=== PATIENT | male | born 1965 | race Caucasian/White ===

== ENCOUNTER 2024-12-14 11:31 | Outpatient (OUT) | payer OTHER, SELFPAY ==
--- NOTE | 2024-12-14 12:16 | CT_ITS ---
The [address] [address] Patient Name: LUIS GIPSON MRN: [id number] date: 1965 Sex: M Assigned Patient Location: CARD Current Patient Location: CARD Accession/Order Number: [id number] Exam Date: 12/14/2024 13:25 Report Date: 12/14/2024 13:35 At the request of: ROBERT BORREGO MD Procedure: CT lung screening low-dose CT Chest lung screening without contrast TECHNIQUE: Axial imaging with 2-D reconstruction. The CT exam was performed using one or more the following dose reduction techniques: Automated exposure control, adjustment of the MA and/or Kv according to patient size, or use of the iterative reconstruction technique. History: Long-term smoker COMPARISON: None THYROID: Unremarkable TRACHEA AND BRONCHI: Patent ESOPHAGUS: Unremarkable. HEART: Within normal limits PERICARDIAL EFFUSION: None CORONARY ARTERY CALCIFICATION: None MEDIASTINUM: No adenopathy. No pneumoperitoneum. No mediastinal hematoma. PULMONARY REAL: No hilar mass or adenopathy is seen. THORACIC AORTA Unremarkable LUNG NODULE None LUNGS: Emphysema with apical bullous changes/scarring.Tiny calcified granuloma the right middle lobe. PLEURAL EFFUSION: None PNEUMOTHORAX: No pneumothorax seen. CHEST WALL: No abnormality AXILLA:Unremarkable BONY STRUCTURES Intact UPPER ABDOMEN: Images of the upper abdomen are noncontributory. CT/CT lung screening low-dose IMPRESSION: No visible lung nodule. FINAL ASSESSMENT: Negative. Lung-RADS Version 1.0 Assessment Category: 1 REMARKS: Continued annual screening with LDCT in 12 months is recommended. Impression dictated by: Arnulfo Newman M.D.12/14/2024 1:35 PM Dictation Location: [facility] Electronically authenticated by: [id number] Y Date: 12/14/2024 13:35
--- NOTE | 2024-12-14 16:57 | PM.STRESS ---
Stress Test Stress Test Requesting physician: TANK SEGUNDO Procedure: This was a Treadmill stress test performed at the [facility] on 12/14/2024. The patient was attached to electrocardiographic monitoring. Baseline vital signs and ECG were obtained. The patient exercised on the treadmill according to the Jasper protocol. Exercise time was 4 minutes and 14 seconds and the patient reached stage II of the Jasper protocol and achieved 6.9 METS. The test was terminated due to shortness of breath and fatigue. Target heart rate was not achieved. Resting heart rate was 75 bpm and peak heart rate was 109 bpm representing 67% of maximum predicted heart rate. Resting blood pressure was 128/70 and peak blood pressure was 164/90. General Information: Reason for Stress Test: Chest pain, shortness of breath. Cardiac History and Risk Factors: Hypertension. Resting 12 - Lead Electrocardiogram: Normal sinus rhythm, no ischemic ST changes. Possible septal infarct, age undetermined. Stress Test: Protocol: Jasper protocol. Exercise Capacity: Poor. Blood Pressure Response: Elevated resting blood pressure with hypertensive response to exercise. Rhythm: Sinus rhythm throughout the test. ST - Response: No ischemic ST changes seen. Patient Response: Shortness of breath and fatigue. Interpretation: 1. Inconclusive stress test due to failure to achieve target heart rate with treadmill exercise. 2. Depending on the clinical picture, pharmacologic stress testing is recommended.
== END 2024-12-14 11:32 | disposition home or self-care (01) ==
LOC: CARD 11:34
PROVIDERS: PCP Family Medicine; Visit Provider Family Medicine
DX: R07.9 Chest pain, unspecified (principal); F17.200 Nicotine dependence, unspecified, uncomplicated
CPT/HCPCS: 71271; 93017

== ENCOUNTER 2025-08-02 10:51 | Outpatient (OUT) | payer OTHER, SELFPAY ==
--- NOTE | 2025-08-02 | XR_ITS ---
The [address] [address] Patient Name: LUIS GIPSON MRN: [id number] date: 1965 Sex: M Assigned Patient Location: [facility] Current Patient Location: [facility] Accession/Order Number: [id number] Exam Date: 08/02/2025 11:10 Report Date: 08/02/2025 11:50 At the request of: TANK SEGUNDO Procedure: XR lumbar spine 2-3V CLINICAL HISTORY: Neck pain and stiffness for the past 6 days. Low back pain with numbness and tingling down the left leg for the past 2 months. No specific injury however neck pain started after visiting a chiropractor. CERVICAL SPINE - 3 views: COMPARISON: None AP, lateral and odontoid views were obtained. There is osteopenia. There is no acute compression fracture. There is minimal retrolisthesis of C3 on C4, C4 on C5 and C5 on C6. Slight disc space narrowing is present at C4-5 and mild at C5-6 and C6-7. There are tiny endplate spurs. Mild facet hypertrophy is seen. The atlantoaxial relationship is maintained. There is no prevertebral soft tissue swelling. XR/XR cervical spine 2-3V IMPRESSION: OSTEOPENIA AND MILD DEGENERATIVE CHANGES LUMBAR SPINE - 2 views COMPARISON: None AP and lateral views were obtained. Evaluation is slightly limited by osteopenia as well as overlying bowel gas and stool.. There is subtle rotatory dextroscoliotic curvature. Alignment is maintained on the lateral view. No acute compression fractures are seen. There is disc space narrowing at the lumbosacral junction with vacuum phenomenon. There are tiny endplate spurs. There is lower lumbar facet hypertrophy. The SI joints are intact. No paraspinal soft tissue abnormalities are noted. IMPRESSION: OSTEOPENIA AND DEGENERATIVE CHANGES, GREATER DISTALLY. Impression dictated by: Indu Sanchez M.D. 08/02/2025 11:50 AM Dictation Location: [place] [address] Electronically authenticated by: [id number] Y Date: 08/02/2025 11:50
--- NOTE | 2025-08-02 | XR_ITS ---
The [address] [address] Patient Name: LUIS GIPSON MRN: [id number] date: 1965 Sex: M Assigned Patient Location: [facility] Current Patient Location: [facility] Accession/Order Number: [id number] Exam Date: 08/02/2025 11:10 Report Date: 08/02/2025 11:50 At the request of: TANK SEGUNDO Procedure: XR lumbar spine 2-3V CLINICAL HISTORY: Neck pain and stiffness for the past 6 days. Low back pain with numbness and tingling down the left leg for the past 2 months. No specific injury however neck pain started after visiting a chiropractor. CERVICAL SPINE - 3 views: COMPARISON: None AP, lateral and odontoid views were obtained. There is osteopenia. There is no acute compression fracture. There is minimal retrolisthesis of C3 on C4, C4 on C5 and C5 on C6. Slight disc space narrowing is present at C4-5 and mild at C5-6 and C6-7. There are tiny endplate spurs. Mild facet hypertrophy is seen. The atlantoaxial relationship is maintained. There is no prevertebral soft tissue swelling. XR/XR lumbar spine 2-3V IMPRESSION: OSTEOPENIA AND MILD DEGENERATIVE CHANGES LUMBAR SPINE - 2 views COMPARISON: None AP and lateral views were obtained. Evaluation is slightly limited by osteopenia as well as overlying bowel gas and stool.. There is subtle rotatory dextroscoliotic curvature. Alignment is maintained on the lateral view. No acute compression fractures are seen. There is disc space narrowing at the lumbosacral junction with vacuum phenomenon. There are tiny endplate spurs. There is lower lumbar facet hypertrophy. The SI joints are intact. No paraspinal soft tissue abnormalities are noted. IMPRESSION: OSTEOPENIA AND DEGENERATIVE CHANGES, GREATER DISTALLY. Impression dictated by: Indu Sanchez M.D. 08/02/2025 11:50 AM Dictation Location: [place] [address] Electronically authenticated by: [id number] Y Date: 08/02/2025 11:50
--- OUTSIDE RECORDS SUMMARY | 2025-08-02 10:58 | XMS_ITS | CCD ---
Author Organization [facility] Care Team Providers Care General Maintenance Helper Name Role Phone DR ROBERT BORREGO Attending Unavailable DR ROBERT BORREGO Consulting Unavailable DR ROBERT BORREGO Primary Care Unavailable DR ROBERT BORREGO Admitting Unavailable Problems Problem ClassificationProblemDateDocumented DateEpisodic/ChronicOther screening for suspected conditions (not mental disorders or infectious disease) (1 source)Encounter for screening for malignant neoplasm of prostate; Translations: [ENC SCREEN MALIG NEOPLASM PROSTATE]Onset: [id number] Results Test NameValueInterpretationReference RangeFacilityCBC AUTO DIFFon 08-05-2021 BASO #0.1 103/ulNormal0.0-0.1[facility] HospitalComment on above:Performed By: #### CBC #### [facility] [address] [place] [address] [address] Rizwana ArnoldBasophils/100 WBC (Bld)1.0 %Normal0.2-2.0[facility] Comment on above:Performed By: #### CBC #### [facility] [address] [address] [address] Rizwana Schmitt #0.4 103/ulNormal0.0-0.7The [facility] CenterComment on above: Performed By: #### CBC #### [facility] [address] [address] [address] Rizwana Sweeneyosinophils/100 WBC (Bld)5.4 %Normal0.9-7.0[facility] Comment on above:Performed By: #### CBC #### [facility] [address] [address] [address] Rizwana Sweeneyrythrocyte distribution width (RBC) [Ratio]13.8 %Feswfd35.0-15.0 The [facility] CenterComment on above:Performed By: #### CBC #### [facility] [address] [place] [address] Dr. Rizwana ArnoldHematocrit (Bld) [Volume fraction]41.8 %Critically low42.0-54.0 The [facility] CenterComment on above:Performed By: #### CBC #### [facility] [address] [place] [address] Dr. Rizwana ArnoldHemoglobin (Bld) [Mass/Vol]13.8 g/dLCritically low14.0-18.0The [facility] CenterComment on above:Performed By: #### CBC #### [facility] [address] [place] [address] Dr. Rizwana Johnson #0.00 10e3/ulNormal0.00-0.03The [facility] CenterComment on above:Performed By: #### CBC #### [facility] [address] [place] [address] Dr. Rizwana Johnson %0.0 %Normal0.0-0.5The [facility] CenterComment on above: Performed By: #### CBC #### [facility] [address] [place] [address] Dr. Rizwana Grant #2.5 103/ulNormal1.2-3.8The [facility] CenterComment on above:Performed By: #### CBC #### [facility] [address] [place] [address] Dr. Rizwana Ruanohocytes/100 WBC (Bld)31.2 %Yndbkt87.5-60.0The [facility] CenterComment on above:Performed By: #### CBC #### [facility] [address] [place] [address] Dr. Rizwana VázquezUAL DIFF REQNONormalThe [facility] CenterComment on above: Performed By: #### CBC #### [facility] [address] [place] [address] Dr. Rizwana Mcrae (RBC) [Entitic mass]31.8 coVdcllx96.9-34.0The [facility] CenterComment on above:Performed By: #### CBC #### [facility] [address] [place] [address] Dr. Rizwana Jaime (RBC) [Mass/Vol]33.0 g/yAVbzscs95.9-35.2The [facility] CenterComment on above:Performed By: #### CBC #### [facility] [address] [place] [address] Dr. Rizwana Jaime (RBC) [Entitic vol]96.3 fLCritically high80.0-94.0The [facility] CenterComment on above:Performed By: #### CBC #### [facility] [address] [place] [address] Dr. Rizwana Nino #0.8 103/ulNormal0.3-0.8The [facility] CenterComment on above:Performed By: #### CBC #### [facility] [address] [place] [address] Dr. Rizwana Pereaocytes/100 WBC (Bld)9.8 %Normal1.7-12.0The [facility] Comment on above:Performed By: #### CBC #### [facility] [address] [place] [address] Dr. Rizwana Dougherty #4.2 103/ulNormal1.4-6.5The [facility] CenterComment on above:Performed By: #### CBC #### [facility] [address] [place] [address] Dr. Rizwana Barreraophils/100 WBC (Bld)52.6 %Ijjfsh85.0-75.0The [facility] CenterComment on above:Performed By: #### CBC #### [facility] [address] [place] [address] Dr. Rizwana Barrios mean volume (Bld) [Entitic vol]9.6 fLNormal9.5-13.5The [facility] CenterComment on above:Performed By: #### CBC #### [facility] [address] [place] [address] Dr. Rizwana ArnoldPLT257 103/haUjyuar196-873IoaSuburban Community Hospital & Brentwood HospitalComment on above: Performed By: #### CBC #### [facility] [address] [address] [address] Rizwana ArnoldRBC4.34 106/ulCritically low4.70-6.10ThOhioHealth Grove City Methodist HospitalComment on above:Performed By: #### CBC #### [facility] [address] [address] [address] Rizwana ArnoldWBC8.0 103/ulNormal4.0-11.0[facility] HospitalComment on above: Performed By: #### CBC #### [facility] [address] [place] [address] Dr. Rizwana ArnoldGLYCOHEMOGLOBIN A1Con 61-90-9871TQA RECOMMENDATIONADA THERAPEUTIC TARGET 6.0 - 7.0 ACTION SUGGESTED > 7.0[facility] HospitalComment on above:Performed By: #### A1C #### [facility] [address] [place] [address] Dr. Rizwana ArnoldGlucose [Mass/Vol]114 mg/dLNoFisher-Titus Medical CenterComment on above:Performed By: #### A1C #### [facility] [address] [place] [address] Dr. Rizwana ArnoldHbA1c (Bld) [Mass fraction]5.6 %Normal<=6.0[facility] Comment on above:Performed By: #### A1C #### [facility] [address] [place] [address] Dr. Rizwana ArnoldLIPID PROFILEon 69-27-1688RAXW-HDL RATIO NORMSEE BELOWMagruder Memorial HospitalComment on above:Result Comment: 3.3 - 4.4 LOW RISK 4.4 - 7.1 AVERAGE RISK 7.1 - 11.0 MODERATE RISK >11.0 HIGH RISKPerformed By: #### CMP, LIPID #### [facility] [address] [place] [address] Dr. Rizwana ArnoldCholesterol [Mass/Vol]152 mg/dLNormal<=200[facility] Comment on above:Performed By: #### CMP, LIPID #### [facility] [address] [address] [address] Rizwana ArnoldCholesterol in HDL [Mass/Vol]36 mg/dLMagruder Memorial Hospital Comment on above:Performed By: #### CMP, LIPID #### [facility] [address] [address] [address] Rizwana ArnoldCholesterol in LDL [Mass/Vol]105.2 mg/dLNoFisher-Titus Medical CenterComment on above:Performed By: #### CMP, LIPID #### [facility] [address] [address] [address] Rizwana Bhaktaestervickey.total/Cholesterol in HDL [Mass ratio]4.2 {ratio} NormalSuburban Community Hospital & Brentwood HospitalComment on above:Performed By: #### CMP, LIPID #### [facility] [address] [address] [address] Rizwana Andrade NORMAL> or = 60 mg/dl - LOW CARDIOVASCULAR RISK <40 mg/dl - HIGH CARDIOVASCULAR RISKMagruder Memorial HospitalComment on above:Performed By: #### CMP, LIPID #### [facility] [address] [address] [address] Rizwana Love CALC NORMALSEE BELOWMagruder Memorial HospitalComment on above:Result Comment: <100 mg/dl OPTIMAL 100 - 129 mg/dl NEAR OR ABOVE OPTIMAL 130 - 159 mg/dl BORDERLINE HIGH 160 - 189 mg/dl HIGH >190 mg/dl VERY HIGH Performed By: #### CMP, LIPID #### [facility] [address] [address] [address] Rizwana ArnoldTriglyceride [Mass/Vol]54 mg/dLNoal<=150[facility] Comment on above:Performed By: #### CMP, LIPID #### [facility] [address] [address] [address] Rizwana ArnoldVLDL CALC10.8 mg/dLNoFisher-Titus Medical CenterComment on above: Performed By: #### CMP, LIPID #### [facility] [address] [address] [address] Rizwana Chang 14(COMP METB)on 11-96-5434Yaghhhe [Mass/Vol]3.6 g/dLNormal 3.5-5.0The [facility] CenterComment on above:Performed By: #### CMP, LIPID #### [facility] [address] [place] [address] Dr. Rizwana ArnoldAlbumin/Globulin [Mass ratio]1.0 {ratio}NormalThe [facility] CenterComment on above:Performed By: #### CMP, LIPID #### [facility] [address] [place] [address] Dr. Rizwana Rosa [Catalytic activity/Vol]76 U/TYzvlsz09-223Qzs [facility] CenterComment on above:Performed By: #### CMP, LIPID #### [facility] [address] [place] [address] Dr. Rizwana Pugh [Catalytic activity/Vol]30 U/KExotgt22-99Ypo [facility] CenterComment on above:Performed By: #### CMP, LIPID #### [facility] [address] [place] [address] Dr. Rizwana Torres gap [Moles/Vol]11.6 mmol/LNormalSuburban Community Hospital [facility] Comment on above:Performed By: #### CMP, LIPID #### [facility] [address] [place] [address] Dr. Rizwana ArnoldAST [Catalytic activity/Vol]20 U/IDfepig09-05Hzh [facility] CenterComment on above:Performed By: #### CMP, LIPID #### [facility] [address] [place] [address] Dr. Rizwana ArnoldBilirubin [Mass/Vol]0.2 mg/dLNormal0.2-1.3The [facility] Comment on above:Performed By: #### CMP, LIPID #### [facility] [address] [place] [address] Dr. Rizwana ArnoldCalcium [Mass/Vol]8.7 mg/dLNormal8.4-10.2The [facility] Comment on above:Performed By: #### CMP, LIPID #### [facility] [address] [address] [address] Rizwana ArnoldChloride [Moles/Vol]105 mmol/SZktwzy91-020Zyt [facility] Comment on above:Performed By: #### CMP, LIPID #### [facility] [address] [address] [address] Rizwana ArnoldCO2 [Moles/Vol]31.5 mmol/LCritically high22.0-30.0The [facility] CenterComment on above:Performed By: #### CMP, LIPID #### [facility] [address] [address] [address] Rizwana ArnoldCreatinine [Mass/Vol]0.72 mg/dLNormal0.66-1.25The [facility] CenterComment on above:Performed By: #### CMP, LIPID #### [facility] [address] [place] [address] Dr. Rizwana SweeneyGFR-AF KOSOVAN>60Normal>=60The [facility] CenterComment on above:Performed By: #### CMP, LIPID #### [facility] [address] [address] [address] Rizwana SweeneyGFR-NON AF KOSOVAN>60Normal>=60The [facility] CenterComment on above:Performed By: #### CMP, LIPID #### [facility] [address] [address] [address] Rizwana ArnoldGlobulin (S) [Mass/Vol]3.5 g/dLNormalThe [facility] CenterComment on above:Performed By: #### CMP, LIPID #### [facility] [address] [address] [address] Rizwana ArnoldGlucose [Mass/Vol]102 mg/lGXndcme86-519Fzm [facility] Comment on above:Performed By: #### CMP, LIPID #### [facility] [address] [address] [address] Rizwana ArnoldPotassium [Moles/Vol]4.1 mmol/LNormal3.4-5.0The [facility] Comment on above:Performed By: #### CMP, LIPID #### [facility] [address] [address] [address] Rizwana ArnoldProtein [Mass/Vol]7.1 g/dLNormal6.1-8.2The [facility] Comment on above:Performed By: #### CMP, LIPID #### [facility] [address] [place] [address] [address] Rizwana ArnoldSodium [Moles/Vol]144 mmol/JMmpmhk812-336Osk [facility] Comment on above:Performed By: #### CMP, LIPID #### [facility] [address] [address] [address] Rizwana ArnoldUrea nitrogen [Mass/Vol]16.0 mg/dLNormal9.0-20.0[facility] HospitalComment on above:Performed By: #### CMP, LIPID #### [facility] [address] [address] [address] Rizwana ArnoldUrea nitrogen/Creatinine [Mass ratio]22.2 mg/mgNormalThe [facility] CenterComment on above:Performed By: #### CMP, LIPID #### [facility] [address] [address] [address] Rizwana Arnold Encounters Encounter DateEncounter TypeCare ProviderFacilityStart: 10-31-9600Fguwzuajx for general adult medical examination without abnormal findingsDR ROBERT MANDUJANOMercy Health [facility] HospitalStart: 08-05-2021 End: 14-19-7275gggxdqwfvmAA ROBERT HOYFacility:G6Kbghu: 08-05-2021 End: 50-63-6198Vvwfhesck for general adult medical examination without abnormal findingsDR ROBERT HOYFacility:H1 Procedures DateProcedureProcedure DetailPerforming ClinicianStart: 39-76-6848MZW screening DR ROBERT Cr on above:Performed By: #### PSASC #### [facility] [address] [place] [address] Dr. Rizwana Arnold Payers DatePayer CategoryPayerLehigh [facility] Health Network [id number] Summary Purpose Family History No Family History Records Found Advance Directives No Advanced Directives Records Found Additional Source Comments (unrecognized sect ion and content) No Status Records Found INFORMATION SOURCE (unrecogn ized section and content) DATE CREATED AUTHOR 08/16/2021 The [facility] FOR RECORDS PERTAINING TO PATIENTS WHO ARE OR HAVE BEEN ENROLLED IN A CHEMICAL DEPENDENCY/SUBSTANCEABUSE PROGRAM, SOME INFORMATION MAY BE OMITTED. This clinical summary was aggregated from multiple sources. Caution should be exercised in using it in the provision of clinical care. This summary normalizes information from multiple sources, and as a consequence, information in this document may materially change the coding, format and clinical context of patient data. In addition, data may be omitted in some cases. CLINICAL DECISIONS SHOULD BE BASED ON THE PRIMARY CLINICAL RECORDS. [facility] [employer] [facility]. provides no warranty or guarantee of the accuracy or completeness of information in this document.
== END 2025-08-02 10:52 | disposition home or self-care (01) ==
LOC: RAD 10:54
PROVIDERS: PCP Nurse Practitioner Family; Visit Provider Nurse Practitioner Family
DX: M54.2 Cervicalgia (principal); M54.9 Dorsalgia, unspecified
CPT/HCPCS: 72040; 72100

== ENCOUNTER 2025-08-17 13:51 | Outpatient (OUT) | payer OTHER, SELFPAY ==
--- NOTE | 2025-08-17 13:58 | MR_ITS ---
The [address] [address] Patient Name: LUIS GIPSON MRN: [id number] date: 1965 Sex: M Assigned Patient Location: [facility] Current Patient Location: [facility] Accession/Order Number: [id number] Exam Date: 08/17/2025 14:45 Report Date: 08/17/2025 23:54 At the request of: TANK SEGUNDO Procedure: MR lumbar spine wo con MRI OF THE LUMBAR SPINE PERFORMED WITHOUT CONTRAST INDICATION: Lumbar pain which radiates into both lower extremities with bilateral feet numbness COMPARISON: Lumbar spine x-rays 08/02/2025 FINDINGS: Lumbar vertebral heights, alignment unremarkable. Moderate disc space narrowing at L5-S1. Evidence of type II Modic endplate marrow changes at L5-S1. Remaining bone marrow seen is unremarkable. The conus medullaris terminates normally at mid L2 level. Multilevel facet arthropathy. T2 hyperintensities left kidney suggestive cysts. Paraspinal soft tissues otherwise unremarkable. T12-L2: No central disease, disc protrusion, central canal or neural from narrowing identified. L2-3: Facet arthropathy. No significant disease central canal neural foraminal narrowing identified. L3-4: Broad-based disc bulge. Focal annular fissure is identified involving both foraminal zones. Facet arthropathy. Mild canal and mild neural foraminal narrowing. L4-5: Circumferential disc bulge with kmwo-nq-zizachju facet arthropathy. This results in moderate neural foraminal narrowing. There is wakh-gq-tebvytsy central canal stenosis and mild crowding both subarticular zones. L5-S1: Circumferential disc bulge with endplate spurring extending to both foramina zones and moderate facet arthropathy. This results in moderate bilateral neural foraminal narrowing. Canal is patent. MR/MR lumbar spine wo con IMPRESSION: Moderate degenerative changes L4-S1 with bilateral neural foraminal narrowing. Hcin-lo-xpdeywcs degenerative changes at L3-4. No high-grade canal or foraminal narrowing identified. Impression dictated by: Tj Waldron M.D. 08/17/2025 11:54 PM Dictation Location: [place] [address] Electronically authenticated by: [id number] Y Date: 08/17/2025 23:54
--- NOTE | 2025-08-17 13:58 | MR_ITS ---
[address] [address] Patient Name: LUIS GIPSON MRN: [id number] date: 1965 Sex: M Assigned Patient Location: [facility] Current Patient Location: [facility] Accession/Order Number: [id number] Exam Date: 08/17/2025 14:45 Report Date: 08/17/2025 17:26 At the request of: TANK SEGUNDO Procedure: MR cervical spine wo con EXAMINATION: MRI OF THE CERVICAL SPINE WITHOUT CONTRAST CLINICAL DATA: Neck Pain COMPARISON: X-rays of the cervical spine 08/02/2025 TECHNIQUE: Multiecho imaging was performed in the sagittal and axial plane without contrast administration. FINDINGS: The craniocervical junction is maintained. Cervical vertebral heights are maintained. Mild disc space narrowing C5-C7 with associated Modic type I endplate marrow changes greatest at C6-C7.. Cervical cord demonstrates normal signal morphology. Prevertebral and paraspinal soft tissues are unremarkable. C2-C3: Minor facet arthropathy. No significant disc disease central canal or neural from narrowing. C3-C4: Uncovertebral spurring mild rights eisw-wv-dxatbiar left this causes mild right-sided and mild to moderate left-sided neural from narrowing. Canal is patent. C4-C5: Mild uncovertebral spurring and minor facet arthropathy, predominantly left-sided. This causes minimal right mild left neural foraminal narrowing. Canal is patent. C5-C6: Mild broad-based disc osteophyte complex with bilateral uncovertebral spurring. Mild dorsal ligament of flavum hypertrophy. Mild central canal stenosis. There is yabb-ph-pyucnykg left-sided moderate right-sided neural from narrowing. C6-C7: Broad-based disc osteophyte complex with uncovertebral spurring. There is results in mild to moderate right-sided moderate left-sided neural foraminal narrowing. Mild central stenosis. C7-T1: Minimal left-sided facet arthropathy. Otherwise no significant disease central canal or neural from narrowing identified. MR/MR cervical spine wo con IMPRESSION: Multilevel degenerative changes greatest left C5-C7. No high-grade canal or neural foraminal narrowing identified. Impression dictated by: Tj Waldron M.D. 08/17/2025 5:26 PM Dictation Location: [place] [address] Electronically authenticated by: [id number] Y Date: 08/17/2025 17:26
== END 2025-08-17 13:52 | disposition home or self-care (01) ==
LOC: RAD 13:51
PROVIDERS: PCP Nurse Practitioner Family; Visit Provider Nurse Practitioner Family
DX: M54.2 Cervicalgia (principal); Z13.820 Encounter for screening for osteoporosis; M51.369 Other intervertebral disc degeneration, lumbar region without mention of lumbar back pain or lower extremity pain
CPT/HCPCS: 72141; 72148; 77080